=== PATIENT | male | born 1955 | race Caucasian/White ===

== ENCOUNTER 2019-03-23 05:02 | Inpatient (IN) | payer OTHER | END 2019-03-26 12:42 | disposition home or self-care (01) | LOC: EDH 05:02 → EDHIP 07:00 → 2CH 08:42 → 4AH 15:12 | PROC: 00943ZZ Drainage of Intracranial Subdural Space, Percutaneous Approach (ICD-10-PCS; principal; 2019-03-23 11:25) | DX: S06.5X9A Traumatic subdural hemorrhage with loss of consciousness of unspecified duration, initial encounter (principal); H47.10 Unspecified papilledema ==

== ENCOUNTER 2019-04-02 06:06 | Emergency (ER) | payer OTHER ==
[~2019-04-02 06:06] MED LIST: APAP PO; BUT PO; CAF PO
[2019-04-02] MEDS ORDERED: IOHEXOL-350 50ML VIAL IV ONE (07:10)
== END 2019-04-02 08:08 | disposition home or self-care (01) ==
LOC: EDH 06:06
DX: I62.03 Nontraumatic chronic subdural hemorrhage (principal); E78.5 Hyperlipidemia, unspecified; Z98.890 Other specified postprocedural states
CPT/HCPCS: 70470; 99284; Q9967

== ENCOUNTER 2019-04-26 09:19 | Inpatient (IN) | payer OTHER ==
[~2019-04-26] VITALS: Ht 175.3 cm; Wt 94.3 kg
[2019-04-26] MEDS ORDERED: SODIUM CHLORIDE 0.9% 1000ML 1,000 ML IV ONE (09:50)
[2019-04-26 10:03] LABS: CREATININE 0.8 mg/dL (0.5-1.5); POTASSIUM 3.8 mmol/L (3.5-5.1)
[2019-04-26] MEDS ORDERED: IOHEXOL-350 50ML VIAL IV ONE (10:08)
[2019-04-26 11:14] LABS: INR 1.02 (0.85-1.15); PROTHROMBIN TIME 10.7 SEC (9.6-11.6)
[2019-04-26] MEDS ORDERED: DEXAMETHASONE SOD PHOSPHATE 4 MG/ML 1ML VIAL ONE ×2 (12:48→19:23)
[2019-04-26] MEDS ORDERED: PHARMACY COMMUNICATION MISC SCH (15:45)
[2019-04-26] MEDS ORDERED: LACTATED RINGERS 1000ML 1,000 ML IV ONE (15:46)
[2019-04-26] MEDS ORDERED: ONDANSETRON HCL 4 MG/2 ML VIAL IVP PRN (16:00)
[2019-04-26] MEDS ORDERED: HYDROCODONE/ACETAMINOPHEN 5/325 MG TAB PO PRN ×2 (21:30)
[2019-04-26] MEDS: FAMOTIDINE/PF 20 MG/2 ML VIAL IV SCH (21:52)
[2019-04-26] MEDS: LACTATED RINGERS 1000ML 1,000 ML IV SCH (21:55)
[2019-04-26] MEDS ORDERED: DEXAMETHASONE SOD PHOSPHATE 4 MG/ML 1ML VIAL IVP SCH (22:00)
[2019-04-26 22:44] VITALS: BP 126/80
[2019-04-26] MEDS ORDERED: ATOR20TA65 PO (23:36)
[2019-04-26] MEDS ORDERED: ZOLP10TA2 PO (23:36)
[2019-04-27 04:00] VITALS: BP 116/79
[2019-04-27] MEDS: DEXAMETHASONE SOD PHOSPHATE 4 MG/ML 1ML VIAL IVP SCH ×2 (05:39→11:50)
[2019-04-27 08:11] VITALS: BP 122/74
[2019-04-27 08:17] LABS: BASOPHILS % (AUTO) 0.1 % (0.0-5.0); HEMATOCRIT 44.2 % (42-54); LYMPHOCYTES % (AUTO) 14.5 % (21.0-51.0); MEAN CORPUSCULAR HEMOGLOBIN 31.1 pg (27.0-33.0); MEAN CORPUSCULAR HGB CONC 34.4 g/dL (32.0-36.0); MEAN CORPUSCULAR VOLUME 90.5 fL (79-99); MONOCYTES % (AUTO) 2.3 % (3.0-13.0); NEUTROPHILS % (AUTO) 83.1 % (40.0-77.0); PLATELET COUNT (AUTO) 99 K/uL (130-400); RED BLOOD CELL COUNT(AUTO) 4.88 MIL/uL (4.50-6.20); RED CELL DISTRIBUTION WIDTH 13.7 % (11.0-15.5); WHITE BLOOD COUNT (AUTO) 7.3 K/uL (4.8-10.8)
[2019-04-27 08:25] LABS: CREATININE 0.9 mg/dL (0.5-1.5); POTASSIUM 4.6 mmol/L (3.5-5.1)
[2019-04-27] MEDS: FAMOTIDINE/PF 20 MG/2 ML VIAL IV SCH (08:55)
[2019-04-27 08:58] LABS: PLATELET MORPHOLOGY COMMENT DECREASED
[2019-04-27] MEDS: LACTATED RINGERS 1000ML 1,000 ML IV SCH (09:09)
--- NOTE | 2019-04-27 10:50 | NUR ---
[facility] [phone]. Pt reports he is independent of ADLs, no DME or in home care services. transports as needed, no dc needs at this time. Plan is home Addendum: 04/27/19 at 1051 by HARINDER GORDON SS Amended: Links added.
[2019-04-27 11:36] VITALS: BP 110/75
--- NOTE | 2019-04-27 14:50 | NUR ---
INSTRUCTIONS DISCHARGE INSTRUCTIONS GIVEN TO PATIENT AND SPOUSE USING TEACH BACK. IV HAS BEEN REMOVED WITH TIP INTACT. DIRECT PRESSURE APPLIED TO CONTROL BLEEDING THEN SITE COVERED WITH GAUZE AND SECURED WITH TAPE. F/U APPOINTMENT MADE. NEW PRESCRIPTION CALLED IN TO PATIENT'S PREFERRED PHARMACY PER REQUEST. NO QUESTIONS OR CONCERNS VOICED.
== END 2019-04-27 14:58 | disposition home or self-care (01) | DRG 91 ==
LOC: EDH 09:19 → EDHIP 15:00 → 4BH 21:06
PROVIDERS: ADMIT Internal Medicine; ATTEND Internal Medicine
DX: G96.0 Cerebrospinal fluid leak (principal); S06.5X9A Traumatic subdural hemorrhage with loss of consciousness of unspecified duration, initial encounter; E78.5 Hyperlipidemia, unspecified; Y93.89 Activity, other specified; Y92.89 Other specified places as the place of occurrence of the external cause; Y99.8 Other external cause status; Z88.5 Allergy status to narcotic agent; Z80.3 Family history of malignant neoplasm of breast; Z82.5 Family history of asthma and other chronic lower respiratory diseases; Z82.49 Family history of ischemic heart disease and other diseases of the circulatory system; Z82.41 Family history of sudden cardiac death
CPT/HCPCS: 36415; 70470; 80048; 85025; 85610; 85730; 93005; 99291; G0378; J1100; J3490; J7030; J7120; Q9967